=== PATIENT | female | born 2005 | race Caucasian/White ===

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

== ENCOUNTER 2024-12-23 10:45 | Emergency (ER) | payer SELFPAY ==
[~2024-12-23] VITALS: Ht 154.9 cm; Wt 61.2 kg
[~2024-12-23 10:45] MED LIST: DEXAMETHASONE4 MG PO; VENTOLIN HFA18 GM INH
[2024-12-23 10:58] VITALS: PULSE 88; RESP 16; TEMP 98.6; O2SAT 100
[2024-12-23] MEDS ORDERED: VENTOLIN HFA18 GM INH (11:14)
[2024-12-23] MEDS ORDERED: PREDNISONE50 MG PO (11:14)
== END 2024-12-23 11:32 | disposition home or self-care (01) ==
LOC: ER 10:56
DX: J45.909 Unspecified asthma, uncomplicated (principal); R09.89 Other specified symptoms and signs involving the circulatory and respiratory systems
CPT/HCPCS: 99283